=== PATIENT | female | born 2000 | race Two or more races ===

== ENCOUNTER 2019-12-13 12:51 | Emergency (ER) | payer SELFPAY ==
[~2019-12-13] VITALS: Ht 160 cm; Wt 56.2 kg
[2019-12-13] MEDS ORDERED: Tetanus/Diptheria/Pertussis IM ONE (13:15)
[2019-12-13] MEDS ORDERED: CEPHALEXIN500 MG ORAL (13:37)
--- NOTE | 2019-12-13 13:37 | Emergency Room Report ---
History of Present Illness General Chief Complaint: Wound Recheck/Suture Removal Source: Patient Present Illness HPI 19-year-old female with past medical history of GERD presents with chief complaint of glass foreign body to the plantar left foot x 1.5 months. She saw her doctor 1 month ago when she was diagnosed with GERD, however did not ask about the glass that was stuck in her foot. She states that she has been performing daily wound care but now there is some irritation to the bottom of the left foot when she bears weight on it. She denies any fever, rash, swelling, nausea, vomiting, diarrhea, or other symptoms. Her pain is alleviated by rest. Tdap is not up-to-date The patient's symptoms were [gradual] onset, severity was [moderate], duration since 60 days. Quality: Sharp Last menstrual period was 2 weeks ago Past medical history: GERD Past surgical history: Denies Smoking: Denies Alcohol use: Denies Drug use: Denies Review of systems: CONST: No fevers or chills, No night sweats PULMONARY: No productive cough, No shortness of breath CARDIAC: No chest pain, No palpitations GI: No vomiting, No diarrhea , No melena_or_BRBPR : No dysuria, No hematuria, No discharge NEURO: No new_focal_weakness_or_numbness, No confusion, No vision changes 14 point Review of Systems is otherwise negative except per HPI Physical Exam: GENERAL: Awake_alert_ nontoxic, no acute distress Spo2 99% on[RA [normal EYES: Extraocular muscles are intact. Conjunctivae clear. Lids without swelling ENT: External nose and ear normal_in_appearance. Oropharynx clear. Head_atraumatic, Moist_oral_mucosa NECK: No JVD. No meningismus. No thyromegaly. Supple. Trachea midline RESP: Normal respiratory effort. Symmetric rise. No stridor. Clear_to_auscultation_No_rales_No_wheezes CARDIAC: [Regular rate] and regular rhytm. No_significant pedal edema. ABDOMEN: Soft. Nondistended. Nontender_No_rebound_or_guarding. MSK: Normal muscle tone, without rigidity. Extremities without asymmetric deformity or swelling. SKIN: Warm and dry. No visible cyanosis or pallor Minimal punctate lesion to the left plantar foot. No associated ulceration, cellulitis, crepitus, swelling or warmth Patient is full weightbearing NEUROLOGIC: Alert, oriented x3. Motor_and_sensation_grossly_intact. No truncal ataxia. Gait_normal Psych: Normal mood and affect, normal judgment and insight - COORDINATION OF CARE Case was discussed with: Patient Any imaging ordered were interpreted as part of the medical decision making: Medical Decision Making/Plan: Differential diagnosis: Scratch versus laceration versus foreign body versus abscess Patient is a well-appearing 19-year-old female with complaint of foreign body to the left plantar foot x6 weeks. On examination, there is a small bump to the mid foot without associated swelling, crepitus, cellulitis, or signs of acute infection. Her skin has completely healed over the speck of glass. X-ray of the foot demonstrates a small glass foreign body to the midfoot. The risks of excising the foreign body at bedside in this nonsterile environment outweighs the benefits at this time. Will advise follow up to swage toolsetter within 1 week. Patient insturcted to follow-up with a primary care doctor for referral to a specialist within 2 to 3 days. There are no signs of acute infection at this time, however will prescribe some antibiotics (Keflex) in case of infection, although I suspect that this is unlikely Pertinent results reviewed with the patient. I educated the patient on the current treatment plan including the risks, benefits, and alternatives. I also discussed the extent and limitations of the current evaluation. The patient expressed understanding and agreement with plan. I recommended PMD follow-up within 1-2 days. Also advised that the patient return to the Emergency Department as soon as possible if they experience any new, persistent, or worsening symptoms. 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 Patient History Last Menstrual Period: 11/29 Nursing Documentation-[facility] Past Medical History: No History, Except For Hx Gastrointestinal Problems: Yes - GERD Physical Exam Vital Signs Date Time Temp Pulse Resp B/P (MAP) Pulse Ox O2 Delivery O2 Flow Rate FiO2 12/13/19 13:05 98.1 61 17 103/55 (71) 98 Room Air Sp02 EP Interpretation: reviewed, normal Medical Decision Making Diagnostic Impression: Primary Impression: Encounter for wound re-check Additional Impressions: Foreign body foot/toe Foot pain, left Other X-Ray Diagnostic Results Other X-Ray Diagnostic Results : MICHELE Francoibkatlyn Text Left Foot X-ray: Views: 3 view(s) No fracture. Normal alignment. Soft tissues normal. Joint spaces normal. Indication: Pain Impression: Mild foreign body likely glass inferior to the calcaneus. No surrounding cellulitis The X-ray(s) were independently viewed and interpreted contemporaneously - Electronically signed by Shannon case DO Reevaluation Time: 13:33 Last Vital Signs Date Time Temp Pulse Resp B/P (MAP) Pulse Ox O2 Delivery O2 Flow Rate FiO2 12/13/19 13:05 98.1 61 17 103/55 (71) 98 Room Air Status: improved Disposition: HOME, SELF-CARE Admit Decision Time: 13:33 Scripts Cephalexin* (KEFLEX*) 500 Mg Capsule 500 MG ORAL EVERY 12 HOURS, #14 CAP 0 Refills Prov: Shannon Angel D.O. 12/13/19 Patient Instructions: Foot Contusion Additional Instructions: You are found to have a foreign body (glass) near your left heel. You are advised to see a swage toolsetter within 1 to 2 days for possible removal It is also possible that this chronic foreign body cannot be surgically removed. weight Bear as tolerated. 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 Follow-up with your doctor sooner if your condition requires a more timely clinical reevaluation. Return to the emergency department immediately if you feel that your condition is worsening or if you have any new or concerning symptoms. Review your discharge instructions and take any prescriptions given as instructed. [facility] PROVIDES FREE OR LOW-COST HEALTH SERVICES TO PEOPLE WHO CAN SHOW PROOF THAT THEY LIVE IN [facility]. TO FIND MORE CLINICS PARTNERED WITH THE [facility] TO PROVIDE SERVICE, PLEASE CALL . Shannon Angel D.O. Dec 13, 2019 13:37
--- NOTE | 2019-12-13 14:03 | NUR ---
ED Nurse Note: Pt cleared by health care Provider for discharge. DC instructions/prescription was given and explained to pt and verbalized understanding of teachings. All medical devices such as ID band removed. Pt is AAO x4, ambulatory and left with all personal belongings. pt aware to start abx if she develops a fever. pt agrees to plan.
[2019-12-13 14:04] VITALS: BP 112/72
--- NOTE | 2019-12-13 15:05 | Diagnostic Imaging Report ---
Indications: History of trauma with foreign body Technique: 3 views of the left foot Comparison: None Findings: No acute fractures. No dislocations. Joint spaces are preserved. No radiopaque foreign body. Normal mineralization. Impression: No acute process
== END 2019-12-13 14:07 | disposition home or self-care (01) ==
LOC: EMR 13:43
DX: S91.342A Puncture wound with foreign body, left foot, initial encounter (principal); Z23 Encounter for immunization; K21.9 Gastro-esophageal reflux disease without esophagitis; W25.XXXA Contact with sharp glass, initial encounter; Y92.9 Unspecified place or not applicable; M25.572 Pain in left ankle and joints of left foot
CPT/HCPCS: 90471; 90715; 99283